=== PATIENT | female | born 1990 | race Caucasian/White ===

== ENCOUNTER 2016-07-01 23:08 | Emergency (ER) | payer MEDICAID ==
--- NOTE | ~2016-07-01 | ER ---
PATIENT'S NAME: JAIDEN NORIEGA [facility] AGE: 25 Y [address] ROOM: [place] [address] LOCATION: [facility] ADMIT DATE: 07/01/2016 ER/Outpatient Report DISCHARGE DATE: 07/01/2016 FAMILY PHYSICIAN: Physician, Unknown ATTENDING PHYSICIAN: Epifanio Meza Admission date and time documented on the medical record. I saw the patient at 2320 hours. CHIEF COMPLAINT: Medical clearance. HISTORY OF PRESENT ILLNESS: This patient is a 25-year-old female who was brought to the emergency room by [facility] for medical clearance. The patient is suicidal, has had suicidal ideations. No suicide plan. The patient is being taken to care home. No recent cough, cold, flus, fever, chills, or sweats. No headache, eyes, ears, nose, throat, neck, or spine pain. No lightheadedness, dizziness, syncope, or near syncope. No fall or trauma. The patient does have a history of headaches, but none tonight. No chest pain or shortness of breath. The patient does have some chronic back pain. She has POT syndrome with orthostatic hypotension. She also has a history of adrenal insufficiency. No other endocrine problems. No joint or muscle swelling, redness, or pain. No skin eruptions or rash. The patient has a little bit of lower abdominal pain, but no nausea, vomiting, or diarrhea. HOME MEDICATIONS: See attached medication list. ALLERGIES: LATEX. SOCIAL HISTORY: Nonsmoker. Occasional intake of alcohol. SIGNIFICANT PAST MEDICAL HISTORY: Eczema, headaches, POT syndrome, adrenal insufficiency, nephrolithiasis, chronic back pain, hypertension, asthma, gastroesophageal reflux, orthostatic hypotension, fibromyalgia. OPERATIONS: Tonsillectomy, oral surgery. REVIEW OF SYSTEMS: All systems reviewed by me are negative with the exception of those discussed PATIENT'S NAME: JAIDEN NORIEGA [facility] AGE: 25 Y [address] ROOM: [place] [address] LOCATION: [facility] ADMIT DATE: 07/01/2016 ER/Outpatient Report DISCHARGE DATE: 07/01/2016 FAMILY PHYSICIAN: Physician, Unknown ATTENDING PHYSICIAN: Epifanio Meza in the history of present illness. PHYSICAL EXAMINATION: VITAL SIGNS: Blood pressure 126/80; pulse 95, regular; respirations 16; O2 saturation on room air is 98%. HEENT: Head, normocephalic. Eyes; extraocular muscles intact. PERRL. Sclerae and conjunctivae are clear, nonicteric. Ears, clear TMs bilaterally. Nose, clear. Throat, clear. Mucous membranes moist. NECK: No nuchal rigidity. No thyromegaly or cervical adenopathy. No tenderness to palpation. Full range of motion. SPINE: Nontender. No deformity. LUNGS: Clear. Good air flow. No rales, rhonchi, or wheezes. HEART: Regular. Pulses are palpable. ABDOMEN: Soft, nondistended. No tenderness elicited to deep palpation. No true guarding, rigidity, rebound tenderness. Active bowel tones. No organomegaly or abnormal masses palpable. No CVA tenderness. PELVIS: Stable. Nontender. EXTREMITIES: No peripheral edema, cyanosis, or deformity. Moves all 4 extremities. NEURO: Cranial nerves intact. No lateralizing sign. The patient is awake, cooperative. Motor and sensory intact. VASCULAR: Intact. SKIN: Clear. No skin eruptions or rash. PSYCH: The patient admits to being suicidal. The patient has suicidal ideations. No suicidal plan. IMPRESSION: 1. Medical clearance. 2. Suicidal ideation. PLAN: The patient discharged from the emergency department in [facility] custody. The patient needs suicidal watch precautions, also needs psychiatric evaluation. I did discuss this with the officer in charge of the patient. MD JOE VEGA/modl /[id number] d: 07/02/16 0026 t: 07/02/16 1815, OUTPATIENT REPORT
== END 2016-07-01 23:33 | disposition disaster alternative care site (69) ==
LOC: GMED 23:08
DX: R45.851 Suicidal ideations (principal); K21.9 Gastro-esophageal reflux disease without esophagitis; I10 Essential (primary) hypertension; I49.8 Other specified cardiac arrhythmias; E27.40 Unspecified adrenocortical insufficiency; Z91.040 Latex allergy status; Z88.8 Allergy status to other drugs, medicaments and biological substances; Z90.89 Acquired absence of other organs; Z98.890 Other specified postprocedural states; Z87.442 Personal history of urinary calculi

== ENCOUNTER 2016-07-06 00:32 | Emergency (ER) | payer MEDICAID ==
--- NOTE | ~2016-07-06 | ER ---
PATIENT'S NAME: JAIDNE NORIEGA [facility] AGE: 26 Y [address] ROOM: [place] [address] LOCATION: [facility] ADMIT DATE: 07/06/2016 ER/Outpatient Report DISCHARGE DATE: 07/06/2016 FAMILY PHYSICIAN: Lynne Palacios MD ATTENDING PHYSICIAN: Rashi Rios Time of Arrival: 0034 hours. Time of Evaluation: 0050 hours. CHIEF COMPLAINT: Dehydration. HISTORY OF PRESENT ILLNESS: The patient is a 26-year-old female who presents to the emergency department today with a chief complaint of dehydration. She reports this started 4 days prior to arrival. She reports she was in [facility] and has not been drinking the water. She reports she just got out about 2 hours ago and came here. She denies any nausea or vomiting. No diaphoresis, no chest pain, no shortness of breath. She has been coughing. She has 0/10 pain. PAST MEDICAL HISTORY: Fibromyalgia, POTS syndrome, eczema, headaches, renal insufficiency/nephrolithiasis, chronic back pain, hypertension, asthma, gastroesophageal reflux disease, orthostatic hypotension, fibromyalgia. PAST SURGICAL HISTORY: Tonsillectomy and oral surgery. SOCIAL HISTORY: The patient denies any tobacco, alcohol, or illicit drug use. ALLERGIES: LATEX ADHESIVE, CONTROL, AND OMEPRAZOLE. MEDICATIONS: Please see list. ROS: All systems are reviewed by myself and are negative with the exception of those discussed in HPI and past medical history. PHYSICAL EXAMINATION: VITAL SIGNS: The weight 46 kg, blood pressure 119/67, pulse 98, respiratory rate 16, temperature 97.5, oxygen saturation 96% on room air. GENERAL: The patient is a 26-year-old female, appears stated age, in no acute PATIENT'S NAME: JAIDEN NORIEGA [facility] AGE: 26 Y [address] ROOM: [place] [address] LOCATION: [facility] ADMIT DATE: 07/06/2016 ER/Outpatient Report DISCHARGE DATE: 07/06/2016 FAMILY PHYSICIAN: Lynne Palacios MD ATTENDING PHYSICIAN: Rashi Rios distress at this time. HEENT: Normocephalic, atraumatic. Pupils are equal, round, and reactive to light and accommodation. Extraocular motions are intact. Nares are patent bilaterally. TMs are clear. Oropharynx is clear. NECK: Supple. There is no nuchal rigidity. CARDIOVASCULAR: Regular rate and rhythm. No murmurs, rubs, or gallops. LUNGS: Clear to auscultation bilaterally. No wheezes, rales, or rhonchi. ABDOMEN: Soft, nontender, and nondistended. No rebound, rigidity, or guarding. MUSCULOSKELETAL: The patient moves all 4 extremities. 5/5 muscle strength. SKIN: Warm and dry. No rashes or lesions noted. LABORATORY DATA AND X-RAYS: Two-view chest x-ray is obtained, is interpreted by myself, shows no acute process. Urinalysis shows 25 leuk esterase, 100 protein, 5 ketones, 10 blood, 2-5 wbc's, 0-2 rbc's, and epithelials. Urine hCG is negative. IMPRESSION: 1. Acute bronchitis. 2. Initial visit. EMERGENCY DEPARTMENT COURSE: The patient was brought back to the examination room. She was seen and evaluated by myself. An IV is established. The patient is given 1 L of normal saline. She is given Xopenex breathing treatments as well as Atrovent. This resulted in improvement of the patient's cough. I have discussed the results with the patient. I recommended close followup with Lynne Palacios in 2-3 days for re-evaluation. I have discussed the [id number] instructions including worsening symptoms or other concerns return to emergency department as soon as possible. I have written a prescription for Tessalon for home. DISPOSITION: The patient was discharged to home in good condition. DO ALEX DUONG/mikiel /[id number] d: 07/06/16 0455 t: 07/06/16 1746, OUTPATIENT REPORT
[2016-07-06 01:04] LABS: BILIRUBIN URINE NEGATIVE (NEGATIVE); BLOOD URINE 10 /UL (NEGATIVE); COLOR URINE YELLOW (YELLOW); GLUCOSE URINE NEGATIVE (NEGATIVE); KETONE URINE 5 mg/dL (NEGATIVE); LEUKOCYTES URINE 25 /UL (NEGATIVE); NITRITE URINE NEGATIVE (NEGATIVE); PROTEIN URINE 100 mg/dL (NEGATIVE); SPEC GRAVITY URINE 1.025 (1.003-1.035); TURBIDITY URINE CLEAR (CLEAR); UROBILINOGEN URINE NORMAL (NORMAL)
[2016-07-06 01:16] LABS: BACTERIA URINE NEGATIVE (NEGATIVE); EPITHELIAL URINE 0-2 #/HPF (NEGATIVE); MUCUS URINE 1+ (NEGATIVE); RBC URINE 0-2 #/HPF (NEGATIVE)
== END 2016-07-06 02:12 | disposition disaster alternative care site (69) ==
LOC: GMED 00:32
PROVIDERS: Emergency Medicine
DX: J40 Bronchitis, not specified as acute or chronic (principal); K21.9 Gastro-esophageal reflux disease without esophagitis; I10 Essential (primary) hypertension; J45.909 Unspecified asthma, uncomplicated; Z90.89 Acquired absence of other organs; Z91.040 Latex allergy status; Z88.8 Allergy status to other drugs, medicaments and biological substances
CPT/HCPCS: J7030; J7612

== ENCOUNTER → 2016-08-17 | Outpatient (CLI) | payer MEDICAID | END | disposition disaster alternative care site (69) | LOC: GRAD 10:30 | DX: R10.9 Unspecified abdominal pain (principal); N83.202 Unspecified ovarian cyst, left side ==

== ENCOUNTER 2016-09-12 22:32 | Emergency (ER) | payer MEDICAID ==
--- NOTE | ~2016-09-12 | ER ---
PATIENT'S NAME: JAIDEN NORIEGA [facility] AGE: 26 Y [address] ROOM: [place] [address] LOCATION: [facility] ADMIT DATE: 09/12/2016 ER/Outpatient Report DISCHARGE DATE: 09/13/2016 FAMILY PHYSICIAN: Lynne Palacios MD ATTENDING PHYSICIAN: Epifanio Meza Admission date and time are documented in the medical record. I saw the patient at 2245 hours. CHIEF COMPLAINT: Dehydration and headache. HISTORY OF PRESENT ILLNESS: This is a 26-year-old female who has had left frontal headache today going up into the top of her head. Feels dehydrated. Little bit of nausea, but no vomiting or diarrhea. No recent colds, coughs, flus, fever, chills, or sweats. No chest pain or shortness of breath. No eyes, ears, nose, throat, neck, or spine pain. No lightheadedness, dizziness, syncope, or near syncope. No fall or trauma. No abdominal pain. No joint or muscle swelling, redness, or pain. No skin eruptions or rash. Does have a history of headaches. Does have a history of suicidal ideation. Does have a history of adrenal insufficiency. HOME MEDICATIONS: See attached medication list. ALLERGIES: LATEX. SOCIAL HISTORY: Nonsmoker. Occasional intake of alcohol. SIGNIFICANT PAST MEDICAL HISTORY: Headaches, eczema, suicidal ideation, POTS syndrome, orthostatic hypotension, renal insufficiency, nephrolithiasis, chronic back pain, hypertension, asthma, gastroesophageal reflux, fibromyalgia, connective tissue disorder, and Raynaud's. OPERATIONS: Oral surgery, tonsillectomy. REVIEW OF SYSTEMS: All systems reviewed by me are negative with the exception of those discussed in the history of present illness. PATIENT'S NAME: JAIDEN NORIEGA [facility] AGE: 26 Y [address] ROOM: [place] [address] LOCATION: [facility] ADMIT DATE: 09/12/2016 ER/Outpatient Report DISCHARGE DATE: 09/13/2016 FAMILY PHYSICIAN: Lynne Palacios MD ATTENDING PHYSICIAN: Epifanio Meza PHYSICAL EXAMINATION: VITAL SIGNS: Temperature 97.1, tympanic, pulse 80, respirations 16, blood pressure 104/66, and O2 sat on room air is 94%. HEAD: Normocephalic. EYES, EARS, NOSE, THROAT: Clear. Mucous membranes a little dry. NECK: Negative. SPINE: Negative. LUNGS: Clear. HEART: Regular. ABDOMEN: Soft, nontender. Good bowel tones. No organomegaly or abnormal mass palpable. EXTREMITIES: Intact. NEUROVASCULAR: Intact. SKIN: Clear. No skin eruptions or rash. EMERGENCY DEPARTMENT COURSE: The patient was started on IV normal saline, fluids, was given 2 L IV in the emergency department. She is also given Zofran 4 mg IV for nausea. IMPRESSION: 1. Dehydration. 2. Headache. PLAN: The patient dismissed home. Observation. Activity as tolerated. Fluids, diet as tolerated. Continue present home medications and care. Rest. Follow up with personal physician as needed. MD JOE VEGA/modl /[id number] d: 09/13/16 0249 t: 09/13/16 1833, OUTPATIENT REPORT
== END 2016-09-13 00:28 | disposition disaster alternative care site (69) ==
LOC: GMED 22:32
DX: E86.0 Dehydration (principal); I10 Essential (primary) hypertension; N20.0 Calculus of kidney; G89.29 Other chronic pain; M54.9 Dorsalgia, unspecified; J45.909 Unspecified asthma, uncomplicated; I49.8 Other specified cardiac arrhythmias; K21.9 Gastro-esophageal reflux disease without esophagitis; Z90.89 Acquired absence of other organs; Z98.890 Other specified postprocedural states; Z91.040 Latex allergy status; Z79.899 Other long term (current) drug therapy; Z88.8 Allergy status to other drugs, medicaments and biological substances
CPT/HCPCS: J2405; J7030

== ENCOUNTER 2016-10-17 21:18 | Emergency (ER) | payer MEDICAID ==
--- NOTE | ~2016-10-17 | ER ---
PATIENT'S NAME: JAIDEN NORIEGA [facility] AGE: 26 Y [address] ROOM: [place] [address] LOCATION: ED ADMIT DATE: 10/17/2016 ER/Outpatient Report DISCHARGE DATE: 10/17/2016 FAMILY PHYSICIAN: Lynne Palacios MD ATTENDING PHYSICIAN: Ayah Sy Time of arrival: 2118 hours. Time of evaluation: 2135 hours. HISTORY OF PRESENT ILLNESS: This is a 26-year-old female. She is previously reasonably healthy. She is in with complaint of an exacerbation of her POTS, orthostatic tachycardia syndrome. She states that for the past several days she has been dizzy when she gets up. She normally receives IVs at the infusion center. However, she has not been able to get this scheduled. PAST MEDICAL HISTORY: Significant for POTS, Sjogren syndrome, fibromyalgia, and multiple other problems. CURRENT MEDICATIONS: Include Restasis and omeprazole. REVIEW OF SYSTEMS: Otherwise negative. SOCIAL HISTORY: She is a nonsmoker. PHYSICAL EXAMINATION: GENERAL: A thin white female in no acute distress. VITAL SIGNS: Stable. SKIN: Warm and dry. Color is normal. HEENT: Head, ears, eyes, nose, and throat were normal. NECK: Supple. HEART: Normal. LUNGS: Normal. ABDOMEN: Soft. EXTREMITIES: Normal. NEUROLOGIC: Normal. ASSESSMENT: Orthostatic tachycardia syndrome. PLAN: PATIENT'S NAME: JAIDEN NORIEGA [facility] AGE: 26 Y [address] ROOM: [place] [address] LOCATION: [facility] ADMIT DATE: 10/17/2016 ER/Outpatient Report DISCHARGE DATE: 10/17/2016 FAMILY PHYSICIAN: Lynne Palacios MD ATTENDING PHYSICIAN: Ayah Sy She is given a liter of normal saline IV and instructed to follow up with her regular doctor as needed. AYAH SY MD JDB/modl /[id number] d: 10/18/16 0454 t: 10/18/16 1755, OUTPATIENT REPORT
== END 2016-10-17 22:40 | disposition disaster alternative care site (69) ==
LOC: GMED 21:18
DX: I49.8 Other specified cardiac arrhythmias (principal); M35.00 Sjogren syndrome, unspecified; M79.7 Fibromyalgia; Z79.899 Other long term (current) drug therapy; Z88.8 Allergy status to other drugs, medicaments and biological substances; Z98.890 Other specified postprocedural states; Z87.442 Personal history of urinary calculi
CPT/HCPCS: J7030

== ENCOUNTER 2016-11-30 20:16 | Emergency (ER) | payer MEDICAID ==
--- NOTE | ~2016-11-30 | ER ---
PATIENT'S NAME: JAIDEN NORIEGA [facility] AGE: 26 Y [address] ROOM: [place] [address] LOCATION: ED ADMIT DATE: 11/30/2016 ER/Outpatient Report DISCHARGE DATE: 11/30/2016 FAMILY PHYSICIAN: Lynne Palacios MD ATTENDING PHYSICIAN: Epifanio Meza TIME OF ARRIVAL: 2015 hours TIME OF EVALUATION: 2044 hours CHIEF COMPLAINT: Requesting IV. HISTORY OF PRESENT ILLNESS: This is a 26-year-old female who presents to the ER, who states she has a history of posterior orthostatic tachycardia syndrome. She states that she has a standing order to receive IV fluids when she feels like she is having a "flareup." She states that she has a slight headache but she has not taken anything for it. She is also feeling tired. She states that she comes here all the time to get IVs when she needs fluids. She states her primary care physician wrote her an order to receive these when she feels like she needs them. She denies any recent illnesses. No fever or chills. No other problems at this time. ALLERGIES: OMEPRAZOLE. MEDICATIONS: Please see medication list in nurse's notes. PAST MEDICAL HISTORY: POT syndrome, fibromyalgia, tonsillectomy, history of kidney stone, chronic back pain, asthma, acid reflux, connective tissue disorder, Raynaud's syndrome, history of renal insufficiency, history of headaches and eczema. SOCIAL HISTORY: Denies smoking, drug, or alcohol use. REVIEW OF SYSTEMS: All systems were reviewed and were negative with the exception of those discussed in the HPI. PHYSICAL EXAMINATION: PATIENT'S NAME: JAIDEN NORIEGA [facility] AGE: 26 Y [address] ROOM: [place], [place] [address] LOCATION: ED ADMIT DATE: 11/30/2016 ER/Outpatient Report DISCHARGE DATE: 11/30/2016 FAMILY PHYSICIAN: Lynne Palacios MD ATTENDING PHYSICIAN: Epifanio Meza VITAL SIGNS: Height 5 feet 4 inches stated, weight 51.6 kg taken, blood pressure is 123/78, pulse 88, respirations 18, temperature 97.4 degrees tympanically, and saturations 98% on room air. Bessie Coma Score is 15. GENERAL: Alert, calm, well-developed female, in no acute distress. The patient rested comfortably in the exam room and texts messages on her phone. HEENT. Head: Normocephalic. Eyes: Pupils are equal and reactive to light. Ears: TMs display good light reflexes bilaterally. Auditory canals clear. Nose: Turbinates pink with no drainage. Throat: No exudates or erythema. She does display moist mucous membranes. NECK: Supple. No lymphadenopathy, she has no nuchal rigidity. LUNGS: Clear to auscultation bilaterally. HEART: Regular rate and rhythm. EXTREMITIES: No clubbing or cyanosis. She has full range of motion of all limbs and she sits comfortably in the exam chair with her legs crossed. Skin is warm dry and intact. LABORATORY DATA AND X-RAYS: None were done. IMPRESSION: 1. Headache. 2. History of posterior orthostatic tachycardia syndrome. ASSESSMENT AND PLAN: I did review the patient's standing order from her primary care physician. The patient was given 2 L of IV fluids here in the emergency room. She rested comfortably here entire stay. She states that she does feel better, so we will dismiss her to home. She needs to follow up with her primary care physician for followup care. The patient understands and agrees with care. JESSEE DU PA-C FOR MD CINDY VEGA/chapito /[id number] d: t: 12/06/16 1626, OUTPATIENT REPORT
== END 2016-11-30 22:05 | disposition disaster alternative care site (69) ==
LOC: GMED 20:16
DX: R51 Headache (principal); I73.00 Raynaud's syndrome without gangrene; J45.909 Unspecified asthma, uncomplicated; M79.7 Fibromyalgia; K21.9 Gastro-esophageal reflux disease without esophagitis; Z90.89 Acquired absence of other organs; Z87.442 Personal history of urinary calculi; Z88.8 Allergy status to other drugs, medicaments and biological substances
CPT/HCPCS: J7030